=== PATIENT | female | born 1965 | race Caucasian/White ===

== ENCOUNTER 2017-10-24 14:22 | Emergency (ER) | payer OTHER ==
[~2017-10-24] VITALS: Ht 160 cm; Wt 80.0 kg
[~2017-10-24 14:22] MED LIST: OXYC1TAB3 PO
[2017-10-24 14:31] VITALS: TEMP 36.9; Ht 160 cm; Wt 80.0 kg
[2017-10-24] MEDS ORDERED: IBUPROFEN 600 MG TAB PO STA (14:43)
[2017-10-24] MEDS ORDERED: ACETAMINOPHEN 500 MG TAB PO STA (14:43)
[2017-10-24] MEDS ORDERED: ACET-1311 PO (14:54)
[2017-10-24] MEDS ORDERED: DIPH1TAB87 PO (14:54)
--- NOTE | 2017-10-24 15:21 | DIAGNOSTIC IMAGING REPORT ---
L WRIST MIN 3 VIEWS ROUTINE CLINICAL HISTORY: Fall. Left arm pain trauma. Pain. COMPARISON: None. DISCUSSION: The bones and joint spaces appear intact. There is no evidence of fracture, dislocation or bony disease. Small old avulsion base first metacarpal. Mild degenerative change first carpometacarpal joint. IMPRESSION: No acute bony abnormality. The above report was generated using voice recognition software. It may contain grammatical, syntax or spelling errors. Electronically signed by: Luis Platt M.D. 10/24/2017 3:20 PM Dictated Date/Time: 10/24/2017 3:19 PM
--- NOTE | 2017-10-24 15:22 | DIAGNOSTIC IMAGING REPORT ---
L ELBOW MIN 3 VIEWS ROUTINE CLINICAL HISTORY: Fall. Left arm pain trauma. Pain. COMPARISON: None. DISCUSSION: The bones and joint spaces appear intact. There is no evidence of fracture, dislocation or bony disease. There is no evidence for soft tissue swelling. IMPRESSION: Negative study. The above report was generated using voice recognition software. It may contain grammatical, syntax or spelling errors. Electronically signed by: Luis Platt M.D. 10/24/2017 3:21 PM Dictated Date/Time: 10/24/2017 3:20 PM
--- NOTE | 2017-10-24 15:24 | DIAGNOSTIC IMAGING REPORT ---
L-SPINE MIN 4 VIEWS ROUTINE HISTORY: Trauma. Pain. Fall. Low back injury/pain COMPARISON: None. FINDINGS: Mild scoliosis. Vertebral body stature is unremarkable. Mild degenerative disc change throughout. No evidence for an acute compression deformity. No evidence for subluxation. IMPRESSION: Mild degenerative change. Mild scoliosis. No acute process. The above report was generated using voice recognition software. It may contain grammatical, syntax or spelling errors. Electronically signed by: Luis Platt M.D. 10/24/2017 3:22 PM Dictated Date/Time: 10/24/2017 3:21 PM
[2017-10-24 15:59] VITALS: BP 140/86; PULSE 90; O2SAT 97
--- NOTE | 2017-10-24 16:51 | EMERGENCY ROOM VISIT NOTE ---
History First contact with patient: 14:33 Chief Complaint: WRIST PAIN Stated Complaint: INJURED LEFT WRIST WHILE WORKING- [employer] History of Present Illness The patient is a 52 year old female who presents to the Emergency Room with complaints of fall that occurred at work about 2-1/2 hours ago. 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 The patient fell backwards, primarily landing on her left arm and low back. The patient was able to collect herself, and stand after the episode. She does not report blood or bleeding. She is not on blood thinners. The patient has not taken anything [id number] for her discomfort which she currently rates a 5/10. She primarily has discomfort in the left wrist. There is a past history of left shoulder surgery, however this does not seem to be bothering her. She does have some mild neck pain but no other significant injuries. Review of Systems More than 10 systems were reviewed and otherwise negative with the exception of history of present illness. Past Medical/Surgical History Left shoulder surgery Family History No pertinent family history Current/Historical Medications Scheduled PRN Acetaminophen (Tylenol), 650 MG PO UD PRN for Pain Diphenhydramine Hcl (Benadryl Allergy), 25 MG PO UD PRN for ALLERGIES Physical Exam Vital Signs Date Time Temp Pulse Resp B/P (MAP) Pulse Ox O2 Delivery O2 Flow Rate FiO2 10/24/17 15:59 90 18 140/86 97 Room Air 10/24/17 14:31 36.9 102 18 168/98 99 Physical Exam VITALS: Vitals are noted on the nurse's note and reviewed by myself. Vital signs stable. GENERAL: Well-developed, well-nourished, white female, who is in no acute distress and resting comfortably. Patient is cooperative with the examination. HEAD: Normocephalic atraumatic. EARS: External ear normal. External auditory canals clear, tympanic membranes pearly luong without erythema or effusion bilaterally. EYES: Pupils equal round and reactive to light and accommodation. Conjunctivae without injection, sclerae without icterus. Extraocular movements intact. NOSE: Patent, turbinates without inflammation or discharge. MOUTH: Mucous membranes moist. Tonsils are not enlarged. Pharynx without erythema, blood, or exudate. Uvula midline. Airway patent. NECK: Supple without nuchal rigidity. No lymphadenopathy. No thyromegaly. Cervical spine is nontender. HEART: Regular rate and rhythm without murmurs gallops or rubs. LUNGS: Clear to auscultation bilaterally without wheezes, rales or rhonchi. No retractions or accessory muscle use. ABDOMEN: Positive normal bowel sounds x 4. Soft, nontender, without masses or organomegaly. No guarding or rebound tenderness. MUSCULOSKELETAL: Tenderness noted along the left wrist. No snuffbox tenderness. Neurovascular status is intact in the distal fingers of the left hand. There is difficulty with supination and pronation secondary to discomfort. No distinct tenderness of the elbow, however there is some tenderness through the radial head distribution. No significant tenderness of the left shoulder or hip. There is lower lumbar tenderness on palpation without step-off or significant spasm. Negative straight leg raise. No saddle paresthesias. NEURO: Patient was alert and oriented to person place and time. CN II through XII grossly intact. No focal neurological deficits. Deep tendon reflexes 2+ throughout. Medical Decision & Procedures ER Provider Diagnostic Interpretation: L ELBOW MIN 3 VIEWS ROUTINE CLINICAL HISTORY: Fall. Left arm pain trauma. Pain. COMPARISON: None. DISCUSSION: The bones and joint spaces appear intact. There is no evidence of fracture, dislocation or bony disease. There is no evidence for soft tissue swelling. IMPRESSION: Negative study. L-SPINE MIN 4 VIEWS ROUTINE HISTORY: Trauma. Pain. Fall. Low back injury/pain COMPARISON: None. FINDINGS: Mild scoliosis. Vertebral body stature is unremarkable. Mild degenerative disc change throughout. No evidence for an acute compression deformity. No evidence for subluxation. IMPRESSION: Mild degenerative change. Mild scoliosis. No acute process. L WRIST MIN 3 VIEWS ROUTINE CLINICAL HISTORY: Fall. Left arm pain trauma. Pain. COMPARISON: None. DISCUSSION: The bones and joint spaces appear intact. There is no evidence of fracture, dislocation or bony disease. Small old avulsion base first metacarpal. Mild degenerative change first carpometacarpal joint. IMPRESSION: No acute bony abnormality. Medications Administered Medications (Trade) Dose Ordered Sig/Scott Route Start Time Stop Time Status Last Admin Dose Admin Acetaminophen (Tylenol Tab) 1,000 mg NOW STAT PO 10/24/17 14:43 10/24/17 14:46 DC 10/24/17 14:55 1,000 MG Ibuprofen (Motrin Tab) 600 mg NOW STAT PO 10/24/17 14:43 10/24/17 14:46 DC 10/24/17 14:55 600 MG ED Course Physical exam and history were performed. Nursing notes, EMR, and Medication List were personally reviewed. Patient appears to have fallen and suffered injuries to her back and wrist. She has discomfort with supination and pronation. The patient was given ibuprofen and Tylenol here in the department. X-rays of the back, elbow, and wrist were performed. X-rays are as above and were reviewed by myself and radiology as showing no acute fractures or dislocations. Overall I suspect the patient's discomfort is related to the contusion, and may be a sprain/strain mechanism. The patient will be given a wrist lacer here from the department. The episode occurred while she was at work, and she will need to follow with Workmen's Compensation for further care and evaluation. She evidently has seen Dr. Rubalcava in the past, and may be able to see them through Workmen's Compensation. I will give her a note for several days off work as well as information for conservative care. She was otherwise invited back to the ER with any new, worsening, or concerning symptoms. The chart was completed utilizing [employer] Speech Voice Recognition Software. Grammatical errors, random word insertions, pronoun errors, and incomplete sentences are an occasional consequence of this system due to software limitations, ambient noise, and hardware issues. Any formal questions or concerns about the content, text, or information contained within the body of this dictation should be directly addressed to the provider for clarification. . Medical Decision Differential diagnosis includes, but is not limited to: Sprain, strain, fracture , dislocation, subluxation, contusion, and others Impression Primary Impression: Fall Additional Impressions: Injury of low back Injury of left wrist Departure Information Dispostion Home / Self-Care Condition GOOD Referrals Peter Rubalcava D.O. Forms HOME CARE DOCUMENTATION FORM, Work Instructions, Additional Instructions: Patient was seen and evaluated today in the emergency department fo medical care. Return to work on 10/27/2017. Please excuse. IMPORTANT VISIT INFORMATION Patient Instructions [facility], ED RICE Additional Instructions You were seen and evaluated today on an emergency basis only. This is not a substitute for, or an effort to provide, complete comprehensive medical care. It is not possible to recognize and treat all injuries or illnesses in a single emergency department visit. For this reason it is recommended that you followup with your Workmen's Compensation provider this week for recheck of your condition. For baseline pain relief you may alternate ibuprofen and acetaminophen every 4 hours for pain control. Take 600 mg ibuprofen (Advil) and then 4 hours later take 1000 mg acetaminophen (Tylenol). Do not take more than 3000 mg acetaminophen in a single day. Wear your wrist lacer until cleared by workman's compensation You are welcome to return to the emergency department anytime with new, worsening, or concerning symptoms. Work Instructions Additional Work Instructions: Patient was seen and evaluated today in the emergency department for medical care. Return to work on 10/27/2017. Please excuse. Problem Qualifiers
== END 2017-10-24 16:00 | disposition home or self-care (01) ==
LOC: C.EDB 14:23 → C.EDD 16:00
DX: S39.92XA Unspecified injury of lower back, initial encounter (principal); S69.92XA Unspecified injury of left wrist, hand and finger(s), initial encounter; W19.XXXA Unspecified fall, initial encounter; Y99.0 Civilian activity done for income or pay

== ENCOUNTER 2022-12-12 18:33 | Inpatient (IN) ==
[2022-12-12] MEDS ORDERED: SODIUM CHLORIDE 0.9% 1000ML 1,000 ML IV ONE (19:01)
[2022-12-12] MEDS ORDERED: ONDANSETRON INJ 2 MG/ML 2 ML VIAL IV STA (19:01)
[2022-12-12] MEDS ORDERED: KETOROLAC TROMETHAMINE 15 MG/ML VIAL IV STA (19:01)
[2022-12-12 19:32] LABS: Appearance Urine Cloudy (Clear); Bacteria Urine Automated Negative (Negative); Bilirubin Urine Negative (Negative); Blood Urine Negative (Negative); Color Urine Dark Yellow; Epithelial Cell Urine Auto >30 /lpf (0-5); Glucose Urine UA Trace (Negative); Ketones Urine Trace (Negative); Leukocyte Esterase Urine Trace (Negative); Nitrite Urine Negative (Negative); Protein Urine 1+ (Negative); Specific Gravity Urine 1.028 (1.000-1.030); Urobilinogen Urine Negative (Negative)
[2022-12-12 19:35] LABS: Hematocrit (blood only) 44.1 % (37.0-47.0); Hemoglobin 14.8 g/dl (12.0-16.0); Mean Corpuscular Hemoglobin 30.1 pg (25.0-34.0); Mean Corpuscular Hgb Conc 33.6 g/dL (32.0-36.0); Mean Corpuscular Volume 89.6 fL (80.0-100.0); Mean Platelet Volume 12.3 fL (9.4-12.4); Platelet Count 188 K/uL (130-400); RDW Standard Deviation 42.4 fL (36.4-46.3); Red Blood Count 4.92 M/uL (4.20-5.40); White Blood Count 20.27 K/ul (4.8-10.8)
[2022-12-12 19:56] LABS: Alanine Aminotransferase 22 U/L (7-52); Albumin Level 4.9 gm/dl (3.4-5.0); Alkaline Phosphatase 67 U/L (34-104); Anion Gap 11 (3-11); BUN Creatinine Ratio 18.1 (10-20); Bilirubin,Total 1.4 mg/dl (0.2-1.0); Blood Urea Nitrogen 21 mg/dl (6-23); Calcium 9.3 mg/dl (8.6-10.3); Carbon Dioxide 21 mmol/L (21-32); Chloride 104 mmol/L (98-107); Est GFR (Non-African American) 52.6 ml/min; Glucose 227 mg/dl (70-99(Fasting)); Lipase 13 U/L (11-82); Sodium 136 mmol/L (136-145); Total Protein 7.6 gm/dl (6.0-8.3)
[2022-12-12 20:02] LABS: Basophils # (auto) 0.07 K/uL (0-0.2); Basophils % (auto) 0.3 %; Eosinophils # (auto) 0.04 K/uL (0-0.50); Eosinophils % (auto) 0.2 %; Immature Granulocytes # (auto) 0.09 K/uL (0.01-0.20); Immature Granulocytes % (auto) 0.4 %; Lymphocytes # (auto) 0.89 K/uL (1.2-3.4); Lymphocytes % (auto) 4.4 %; Monocytes # (auto) 0.72 K/uL (0.11-0.59); Monocytes % (auto) 3.6 %; Neutrophils # (auto) 18.46 K/uL (1.40-6.50); Neutrophils % (auto) 91.1 %; RBC Morphology Unremarkable
[2022-12-12 20:03] LABS: Cast Urine Automated >30 /lpf (0-5)
--- NOTE | 2022-12-12 20:32 | CT Scan Report ---
ABDOMEN AND PELVIS CT WITHOUT CONTRAST CT DOSE: 994.31 mGy.cm HISTORY: dysuria hematuria llq pain TECHNIQUE: Multiaxial CT images of the abdomen and pelvis were performed without contrast. A dose lo wering technique was utilized adhering to the principles of ALARA. COMPARISON STUDY: None. FINDINGS: A few small bibasilar linear densities consistent with subsegmental atelectasis. No pneumop eritoneum. No acute fractures identified. Cholecystectomy. Hepatic steatosis. The unenhanced spleen, adrenal glands, and pancreas unremarkable. There is a 2 mm nonobstructing stone within the lower pole of the left kidney. No right renal calculi. No ureteral calculi. No hydronephrosis. No retroperitone al lymphadenopathy. Normal caliber abdominal aorta. No pelvic lymphadenopathy or pelvic free fluid. P rior hysterectomy. Mild bladder wall thickening. Suboptimal evaluation for bowel pathology due to the lack of intravenous and oral contrast. However, there is no definite bowel wall thickening or obstru ction. Multiple fluid-filled loops of large and small bowel are seen throughout the abdomen. This fav ors a diarrheal illness/gastroenteritis. Normal appendix. Small gas bubbles along the periphery of th e cecum are likely intraluminal. No bowel wall thickening or inflammatory change to suggest pneumatos is at this location. IMPRESSION: 1. Mild bladder wall thickening. This may represent a cystitis. Recommend correlation with urinalysis . 2. Fluid-filled nondilated loops of large and small bowel seen throughout the abdomen. This favors a diarrheal illness/gastroenteritis. 3. No bowel wall thickening or obstruction. 4. Normal appendix. 5. Cholecystectomy. 6. Hepatic steatosis. 7. Left-sided nephrolithiasis. No ureteral stones. No hydronephrosis. ACT 112: Negative or not required by law. Electronically signed by: Zackary Akbar M.D. 12/12/2022 8:29 PM
[2022-12-12 20:57] LABS: Bilirubin Direct 0.2 mg/dl (0-0.2); Potassium 4.1 mmol/L (3.5-5.1)
[2022-12-12] MEDS ORDERED: SODIUM CHLORIDE 0.9% 1000ML 2,000 ML IV ONE (21:00)
[2022-12-12 22:34] LABS: Adenovirus F 40/41 PCR Not Detected (NotDetected); Astrovirus PCR Not Detected (NotDetected); Campylobacter PCR Not Detected (NotDetected); Cryptosporidium PCR Not Detected (NotDetected); Cyclospora cayetanensis PCR Not Detected (NotDetected); Entamoeba histolytica PCR Not Detected (NotDetected); Enteroaggregative E.coli(EAEC) Not Detected (NotDetected); Enteropathogenic E.coli (EPEC) Not Detected (NotDetected); Enterotoxigenic E.coli (ETEC) Not Detected (NotDetected); Giardia lamblia PCR Not Detected (NotDetected); Norovirus GI/GII PCR Not Detected (NotDetected); Plesiomonas shigelloides PCR Not Detected (NotDetected); Rotavirus A PCR Not Detected (NotDetected); Salmonella PCR Not Detected (NotDetected); Sapovirus PCR Not Detected (NotDetected); Shiga-like Toxin E.coli (STEC) Not Detected (NotDetected); Shigella/Enteroinvasive E.coli Not Detected (NotDetected); Vibrio cholerae PCR Not Detected (NotDetected); Vibrio species PCR Not Detected (NotDetected); Yersinia enterocolitica PCR Not Detected (NotDetected)
[2022-12-12] MEDS ORDERED: cefTRIAXone SODIUM 1,000 MG in DEXTROSE 5% AD-VAN 50 ML IV STA (22:37)
[2022-12-12] MEDS ORDERED: metroNIDAZOLE 500 MG/100 ML BAG IV STA (22:37)
--- NOTE | 2022-12-12 22:44 | Emergency Department Note ---
History of Present Illness General Chief complaint: Illness Stated complaint: VOMITING,DIARREAH STOMACH PAINS,HEADACHE Time Seen by Provider: 12/12/22 18:56 History of Present Illness Provider Complaint: + nausea, + vomiting, + diarrhea and + abdominal pain Onset (ago): week(s) 2 Description of Vomiting: no bilious, no blood-streaked, no bloody or no coffee grounds Description of Diarrhea: no tarry, no blood-streaked or no bloody (bright red) Associated Abdominal Pain: Yes Location of pain: + LLQ Severity: moderate Maximum Pain Intensity: 7 Current Pain Intensity: 7 Quality: + stabbing and + sharp Pain Consistency: + constant Relieved By: + none Exacerbated By: + none Context: + recent antibiotic use (Patient states her PCP initially thought she had a UTI so prescribed her Keflex however she only took 1 pill because it started making her vomit more); no foreign travel, no possible food poisoning, no sick contacts, no history of abdominal surgery, no alcohol abuse, no trauma, no anticoagulant use, no NSAID use, no self induced, no smoking or no marijuana use Associated symptoms: + myalgias, + fever/chills (Chills no fevers), + malaise and + weakness; no chest pain, no rash, no dysuria or no shortness of breath HPI Narrative: Patient reports 7 pound weight loss over the last 2 weeks Home Medications Medication Instructions Recorded Confirmed Type acetaminophen [Tylenol] PO 02/10/22 02/10/22 History cetirizine 10 mg capsule (Zyrtec) 10 mg PO DAILY PRN 02/10/22 02/10/22 History lisinopril 2.5 mg tablet 2.5 mg PO DAILY 02/10/22 02/10/22 History lorazepam 0.5 mg tablet 0.5 mg PO DAILY PRN 02/10/22 02/10/22 History meloxicam 15 mg tablet 15 mg PO DAILY 02/10/22 02/10/22 History metformin 500 mg tablet 500 mg PO BID 02/10/22 02/10/22 History Allergies Allergy/AdvReac Type Severity Reaction Status Date / Time No Known Drug Allergies Allergy Verified 02/10/22 09:13 Past Med/Surg History Medical History Dizziness Neck pain Radiculopathy Right tennis elbow Surgical History History of cholecystectomy History of hysterectomy Hx of arthroscopy of shoulder left Family History Other Heart disease Hypertension No family history of adverse response to anesthesia No family history of bleeding disorder Social History Smoking Status: Never smoker Hx Alcohol Use: No Hx Substance Use: No Preferred Language: Venezuelan Feels Safe at Home: Yes Physical Exam Vital Signs: Vital Signs - 24 hr 12/12/22 18:42 12/12/22 19:46 12/12/22 20:24 Temperature 36.5 C Temperature Source Temporal Artery Sc an Pulse Rate 127 H 100 H Pulse Rate [Apical ] 90 Pulse Rhythm Pulse Rhythm [Apic al] Regular Pulse Strength [Ap ical] Normal Respiratory Rate 18 14 Respiratory Effort / Characteristics Non-Labored Sponta neous Respiratory Depth Normal Respiratory Patter n Regular Blood Pressure 114/74 Blood Pressure [Ri ght Arm] 116/52 L Blood Pressure Rosemarie n 87 Blood Pressure Rosemarie n [Right Arm] 73 Blood Pressure Pos ition Sitting Blood Pressure Pos ition [Right Arm] Semi-fowlers Pulse Oximetry 97 95 Oxygen Delivery Me thod Room Air Room Air Sepsis Recent Feve r Within 48 Hours No Sepsis New/Unexpla ined Change in Men ryan Status N/A Sepsis Action Take n by Nursing No Action Required 12/12/22 20:45 Temperature Temperature Source Pulse Rate 90 Pulse Rate [Apical ] Pulse Rhythm Regular Pulse Rhythm [Apic al] Pulse Strength [Ap ical] Respiratory Rate 15 Respiratory Effort / Characteristics Respiratory Depth Respiratory Patter n Blood Pressure Blood Pressure [Ri ght Arm] Blood Pressure Rosemarie n Blood Pressure Rosemarie n [Right Arm] Blood Pressure Pos ition Blood Pressure Pos ition [Right Arm] Pulse Oximetry 95 Oxygen Delivery Me thod Room Air Sepsis Recent Feve r Within 48 Hours Sepsis New/Unexpla ined Change in Men ryan Status Sepsis Action Take n by Nursing Physical Exam: Physical Exam HENT: Exam performed. -Head: Normocephalic and atraumatic. -Right Ear: External ear normal. No mastoid erythema -Left Ear: External ear normal. No mastoid erythema -Mouth/Throat: The oropharynx is clear and moist. No trismus in the jaw. No dental abscesses or uvula swelling. No oropharyngeal exudate or tonsillar abscesses. EYES: Conjunctivae and EOM are normal. Pupils are equal, round, and reactive to light. Right eye exhibits no discharge. Left eye exhibits no discharge. No scleral icterus. NECK: Normal range of motion. Neck supple. No JVD present. No spinous process tenderness present.No tracheal deviation and normal range of motion present. CV: Normal rate, regular rhythm, normal heart sounds and intact distal pulses. There is no peripheral edema. Palpable radial pulses bue. PULM/CHEST: Effort normal and breath sounds normal. No respiratory distress. No stridor. She has no wheezes. She has no rales. -Chest Wall: She exhibits no tenderness. ABD: The abdomen is soft. There is tenderness to palpation of the left lower quadrant. There is no rebound, no guarding. NEURO: She is alert and oriented to person, place, and time. She has normal strength. No cranial nerve deficit or sensory deficit. GCS eye subscore is 4. GCS verbal subscore is 5. GCS motor subscore is 6. Cerebellar tests wnl. SKIN: Skin is warm and dry. She is not diaphoretic. PSYCH: She has a normal mood and affect. Behavior is normal. Judgment and thought content normal. Course Course 185: The patient was evaluated in room C1. A complete history and physical exam was performed Cardiac monitoring: An order was placed for continuous cardiac monitoring. The monitor shows a rate of 90 with sinus rhythm interpreted by az 2249: Vital signs stable. On reassessment the patient is resting. Her heart rate is improved with IV fluids. No meningeal signs or focal neurological deficits. Labs show leukocytosis of 20.27 initial lactic acid 3.6. Total bilirubin 1.4. Urinalysis shows no signs of bacteria. BioFire stool negative. COVID-negative. CT of the abdomen pelvis shows mild bladder wall thickening and fluid-filled nondilated loops of the small and large bowels with a normal appendix. Given there is no source of the patient's infection patient be treated empirically with antibiotics and admitted to [facility] team Dr. Brunner notified. 2316: Chest x-ray negative. C. difficile pending. Administered Medications Discontinued Medications Sodium Chloride (Nss 1000ml) 1,000 mls @ 999 mls/hr IV .Q1H1M ONE Stop: 12/12/22 20:01 Last Infusion: 12/12/22 20:32 Dose: 0 mls/hr Documented By: Admin: 12/12/22 19:26 Dose: 999 mls/hr Documented By: Sodium Chloride (Nss 1000ml) 2,000 mls @ 999 mls/hr IV .Q2H1M ONE Stop: 12/12/22 23:00 Last Admin: 12/12/22 21:15 Dose: 999 mls/hr Documented By: Ketorolac Tromethamine (Ketorolac Tromethamine 15 Mg/Ml Vial) 15 mg IV NOW STA Stop: 12/12/22 19:02 Last Admin: 12/12/22 19:26 Dose: 15 mg Documented By: Ondansetron HCl (Ondansetron Inj 2 Mg/Ml 2 Ml Vial) 4 mg IV NOW STA Stop: 12/12/22 19:02 Last Admin: 12/12/22 19:26 Dose: 4 mg Documented By: Medical Decision Making Laboratory Data Attestation: I reviewed the patient's lab results. 12/12/22 19:08 12/12/22 20:04 Lab Results 12/12/22 12/12/22 12/12/22 Range/Units 19:08 19:08 19:08 WBC 20.27 H (4.8-10.8) K/ul RBC 4.92 (4.20-5.40) M/uL Hgb 14.8 (12.0-16.0) g/dl Hct 44.1 (37.0-47.0) % MCV 89.6 (80.0-100.0) fL MCH 30.1 (25.0-34.0) pg MCHC 33.6 (32.0-36.0) g/dL RDW Std Deviation 42.4 (36.4-46.3) fL RDW Coeff of Kim 13.0 (11.5-14.5) % Plt Count 188 (130-400) K/uL MPV 12.3 (9.4-12.4) fL Immature Gran % (Auto) 0.4 % Neut % (Auto) 91.1 % Lymph % (Auto) 4.4 % [place] % (Auto) 3.6 % Eos % (Auto) 0.2 % Baso % (Auto) 0.3 % Neut # (Auto) 18.46 H (1.40-6.50) K/uL Lymph # (Auto) 0.89 L (1.2-3.4) K/uL [place] # (Auto) 0.72 H (0.11-0.59) K/uL Eos # (Auto) 0.04 (0-0.50) K/uL Baso # (Auto) 0.07 (0-0.2) K/uL Immature Gran # (Auto) 0.09 (0.01-0.20) K/uL RBC Morphology Unremarkable Sodium 136 (136-145) mmol/L Potassium TNP Chloride 104 (98-107) mmol/L Carbon Dioxide 21 (21-32) mmol/L Anion Gap 11 (3-11) BUN 21 (6-23) mg/dl Creatinine 1.16 (0.6-1.2) mg/dl Est Cr Clr Drug Dosing Not Reportable Est GFR ( Amer) 61.0 ml/min Est GFR (Non-Af Amer) 52.6 ml/min BUN/Creatinine Ratio 18.1 (10-20) Glucose 227 H (70-99(Fasting)) mg/dl Lactate (0.4-2.0) mmol/L Calcium 9.3 (8.6-10.3) mg/dl Total Bilirubin 1.4 H (0.2-1.0) mg/dl Direct Bilirubin TNP AST TNP ALT 22 (7-52) U/L Alkaline Phosphatase 67 (34-104) U/L Total Protein 7.6 (6.0-8.3) gm/dl Albumin 4.9 (3.4-5.0) gm/dl Lipase 13 (11-82) U/L Urine Color Dark Yellow Urine Appearance Cloudy A (Clear) Urine pH 5.0 (4.5-7.5) Ur Specific [place] 1.028 (1.000-1.030) Urine Protein 1+ H (Negative) Urine Glucose (UA) Trace H (Negative) Urine Ketones Trace H (Negative) Urine Blood Negative (Negative) Urine Nitrite Negative (Negative) Urine Bilirubin Negative (Negative) Urine Urobilinogen Negative (Negative) Ur Leukocyte Esterase Trace H (Negative) Urine WBC (Auto) 5-10 H (0-5) /hpf Urine RBC (Auto) 10-30 H (0-4) /hpf U Hyaline Cast (Auto) >30 H (0-5) /lpf U Epithel Cells (Auto) >30 H (0-5) /lpf Urine Bacteria (Auto) Negative (Negative) Ur Renal Epithelial Cell Not Reportable Granular Casts 5-10 H (0) /lpf Stl C. cayetanensis PCR (NotDetected) Stool Rotavirus A PCR (NotDetected) Stl Adenov F 40/41 PCR (NotDetected) Stool Astrovirus (PCR) (NotDetected) Stool Campylobacter PCR (NotDetected) Stool Cryptosporidium PCR (NotDetected) Stl E.coli Shiga Tox PCR (NotDetected) Stl Enterotoxigenic E PCR (NotDetected) Stool EPEC (PCR) (NotDetected) Stool EAEC (PCR) (NotDetected) Stl E. histolytica PCR (NotDetected) Stool Giardia Lamblia PCR (NotDetected) Stool Salmonella PCR (NotDetected) Stool Sapovirus (PCR) (NotDetected) Stl P. shigelloides PCR (NotDetected) Stl Shigella/EIEC PCR (NotDetected) St Y.enterocolitica PCR (NotDetected) Stool Vibrio (PCR) (NotDetected) Stl Vibrio cholerae PCR (NotDetected) Stl Norovirus GI/GII PCR (NotDetected) SARS-CoV-2, RNA, NAAT (NEGATIVE) 12/12/22 12/12/22 12/12/22 Range/Units 19:30 20:04 20:04 WBC (4.8-10.8) K/ul RBC (4.20-5.40) M/uL Hgb (12.0-16.0) g/dl Hct (37.0-47.0) % MCV (80.0-100.0) fL MCH (25.0-34.0) pg MCHC (32.0-36.0) g/dL RDW Std Deviation (36.4-46.3) fL RDW Coeff of Kim (11.5-14.5) % Plt Count (130-400) K/uL MPV (9.4-12.4) fL Immature Gran % (Auto) % Neut % (Auto) % Lymph % (Auto) % [place] % (Auto) % Eos % (Auto) % Baso % (Auto) % Neut # (Auto) (1.40-6.50) K/uL Lymph # (Auto) (1.2-3.4) K/uL [place] # (Auto) (0.11-0.59) K/uL Eos # (Auto) (0-0.50) K/uL Baso # (Auto) (0-0.2) K/uL Immature Gran # (Auto) (0.01-0.20) K/uL RBC Morphology Sodium (136-145) mmol/L Potassium 4.1 Chloride (98-107) mmol/L Carbon Dioxide (21-32) mmol/L Anion Gap (3-11) BUN (6-23) mg/dl Creatinine (0.6-1.2) mg/dl Est Cr Clr Drug Dosing Est GFR ( Amer) ml/min Est GFR (Non-Af Amer) ml/min BUN/Creatinine Ratio (10-20) Glucose (70-99(Fasting)) mg/dl Lactate 3.6 H* (0.4-2.0) mmol/L Calcium (8.6-10.3) mg/dl Total Bilirubin (0.2-1.0) mg/dl Direct Bilirubin 0.2 AST 22 ALT (7-52) U/L Alkaline Phosphatase (34-104) U/L Total Protein (6.0-8.3) gm/dl Albumin (3.4-5.0) gm/dl Lipase (11-82) U/L Urine Color Urine Appearance (Clear) Urine pH (4.5-7.5) Ur Specific [place] (1.000-1.030) Urine Protein (Negative) Urine Glucose (UA) (Negative) Urine Ketones (Negative) Urine Blood (Negative) Urine Nitrite (Negative) Urine Bilirubin (Negative) Urine Urobilinogen (Negative) Ur Leukocyte Esterase (Negative) Urine WBC (Auto) (0-5) /hpf Urine RBC (Auto) (0-4) /hpf U Hyaline Cast (Auto) (0-5) /lpf U Epithel Cells (Auto) (0-5) /lpf Urine Bacteria (Auto) (Negative) Ur Renal Epithelial Cell Granular Casts (0) /lpf Stl C. cayetanensis PCR (NotDetected) Stool Rotavirus A PCR (NotDetected) Stl Adenov F PCR (NotDetected) Stool Astrovirus (PCR) (NotDetected) Stool Campylobacter PCR (NotDetected) Stool Cryptosporidium PCR (NotDetected) Stl E.coli Shiga Tox PCR (NotDetected) Stl Enterotoxigenic E PCR (NotDetected) Stool EPEC (PCR) (NotDetected) Stool EAEC (PCR) (NotDetected) Stl E. histolytica PCR (NotDetected) Stool Giardia Lamblia PCR (NotDetected) Stool Salmonella PCR (NotDetected) Stool Sapovirus (PCR) (NotDetected) Stl P. shigelloides PCR (NotDetected) Stl Shigella/EIEC PCR (NotDetected) St Y.enterocolitica PCR (NotDetected) Stool Vibrio (PCR) (NotDetected) Stl Vibrio cholerae PCR (NotDetected) Stl Norovirus GI/GII PCR (NotDetected) SARS-CoV-2, RNA, NAAT NEGATIVE (NEGATIVE) 12/12/22 Range/Units 21:08 WBC (4.8-10.8) K/ul RBC (4.20-5.40) M/uL Hgb (12.0-16.0) g/dl Hct (37.0-47.0) % MCV (80.0-100.0) fL MCH (25.0-34.0) pg MCHC (32.0-36.0) g/dL RDW Std Deviation (36.4-46.3) fL RDW Coeff of Kim (11.5-14.5) % Plt Count (130-400) K/uL MPV (9.4-12.4) fL Immature Gran % (Auto) % Neut % (Auto) % Lymph % (Auto) % [place] % (Auto) % Eos % (Auto) % Baso % (Auto) % Neut # (Auto) (1.40-6.50) K/uL Lymph # (Auto) (1.2-3.4) K/uL [place] # (Auto) (0.11-0.59) K/uL Eos # (Auto) (0-0.50) K/uL Baso # (Auto) (0-0.2) K/uL Immature Gran # (Auto) (0.01-0.20) K/uL RBC Morphology Sodium (136-145) mmol/L Potassium Chloride (98-107) mmol/L Carbon Dioxide (21-32) mmol/L Anion Gap (3-11) BUN (6-23) mg/dl Creatinine (0.6-1.2) mg/dl Est Cr Clr Drug Dosing Est GFR ( Amer) ml/min Est GFR (Non-Af Amer) ml/min BUN/Creatinine Ratio (10-20) Glucose (70-99(Fasting)) mg/dl Lactate (0.4-2.0) mmol/L Calcium (8.6-10.3) mg/dl Total Bilirubin (0.2-1.0) mg/dl Direct Bilirubin AST ALT (7-52) U/L Alkaline Phosphatase (34-104) U/L Total Protein (6.0-8.3) gm/dl Albumin (3.4-5.0) gm/dl Lipase (11-82) U/L Urine Color Urine Appearance (Clear) Urine pH (4.5-7.5) Ur Specific [place] (1.000-1.030) Urine Protein (Negative) Urine Glucose (UA) (Negative) Urine Ketones (Negative) Urine Blood (Negative) Urine Nitrite (Negative) Urine Bilirubin (Negative) Urine Urobilinogen (Negative) Ur Leukocyte Esterase (Negative) Urine WBC (Auto) (0-5) /hpf Urine RBC (Auto) (0-4) /hpf U Hyaline Cast (Auto) (0-5) /lpf U Epithel Cells (Auto) (0-5) /lpf Urine Bacteria (Auto) (Negative) Ur Renal Epithelial Cell Granular Casts (0) /lpf Stl C. cayetanensis PCR Not Detected (NotDetected) Stool Rotavirus A PCR Not Detected (NotDetected) Stl Adenov F 40/41 PCR Not Detected (NotDetected) Stool Astrovirus (PCR) Not Detected (NotDetected) Stool Campylobacter PCR Not Detected (NotDetected) Stool Cryptosporidium PCR Not Detected (NotDetected) Stl E.coli Shiga Tox PCR Not Detected (NotDetected) Stl Enterotoxigenic E PCR Not Detected (NotDetected) Stool EPEC (PCR) Not Detected (NotDetected) Stool EAEC (PCR) Not Detected (NotDetected) Stl E. histolytica PCR Not Detected (NotDetected) Stool Giardia Lamblia PCR Not Detected (NotDetected) Stool Salmonella PCR Not Detected (NotDetected) Stool Sapovirus (PCR) Not Detected (NotDetected) Stl P. shigelloides PCR Not Detected (NotDetected) Stl Shigella/EIEC PCR Not Detected (NotDetected) St Y.enterocolitica PCR Not Detected (NotDetected) Stool Vibrio (PCR) Not Detected (NotDetected) Stl Vibrio cholerae PCR Not Detected (NotDetected) Stl Norovirus GI/GII PCR Not Detected (NotDetected) SARS-CoV-2, RNA, NAAT (NEGATIVE) Imaging Data Attestation: I personally reviewed and interpreted this imaging study as follows: My Impression: Chest x-ray negative. Airway clear. No pneumothorax. No consolidation. No cardiomegaly or cephalization.. No free air under the diaphragm. No fractures of the skeletal structures. Radiologist's Impression: Abdomen/Pelvis CT 12/12/22 19:[address] WITHOUT CONTRAST CT DOSE: 994.31 mGy.cm HISTORY: dysuria hematuria llq pain TECHNIQUE: Multiaxial CT images of the abdomen and pelvis were performed without contrast. A dose lowering technique was utilized adhering to the principles of ALARA. COMPARISON STUDY: None. FINDINGS: A few small bibasilar linear densities consistent with subsegmental atelectasis. No pneumoperitoneum. No acute fractures identified. Cholecystectomy. Hepatic steatosis. The unenhanced spleen, adrenal glands, and pancreas unremarkable. There is a 2 mm nonobstructing stone within the lower pole of the left kidney. No right renal calculi. No ureteral calculi. No hydronephrosis. No retroperitoneal lymphadenopathy. Normal caliber abdominal aorta. No pelvic lymphadenopathy or pelvic free fluid. Prior hysterectomy. Mild bladder wall thickening. Suboptimal evaluation for bowel pathology due to the lack of intravenous and oral contrast. However, there is no definite bowel wall thickening or obstruction. Multiple fluid-filled loops of large and small bowel are seen throughout the abdomen. This favors a diarrheal illness/gastroenteritis. Normal appendix. Small gas bubbles along the periphery of the cecum are likely intraluminal. No bowel wall thickening or inflammatory change to suggest pneumatosis at this location. IMPRESSION: 1. Mild bladder wall thickening. This may represent a cystitis. Recommend correlation with urinalysis. 2. Fluid-filled nondilated loops of large and small bowel seen throughout the abdomen. This favors a diarrheal illness/gastroenteritis. 3. No bowel wall thickening or obstruction. 4. Normal appendix. 5. Cholecystectomy. 6. Hepatic steatosis. 7. Left-sided nephrolithiasis. No ureteral stones. No hydronephrosis. ACT 112: Negative or not required by law. Electronically signed by: Zackary Akbar M.D. 12/12/2022 8:29 PM [facility] Narrative 1856: The patient was evaluated in room C1. A complete history and physical exam was performed Cardiac monitoring: An order was placed for continuous cardiac monitoring. The monitor shows a rate of 90 with sinus rhythm interpreted by az [id number]: Vital signs stable. On reassessment the patient is resting. Her heart rate is improved with IV fluids. No meningeal signs or focal neurological deficits. Labs show leukocytosis of 20.27 initial lactic acid 3.6. Total bilirubin 1.4. Urinalysis shows no signs of bacteria. BioFire stool negative. COVID-negative. CT of the abdomen pelvis shows mild bladder wall thickening and fluid-filled nondilated loops of the small and large bowels with a normal appendix. Given there is no source of the patient's infection patient be treated empirically with antibiotics and admitted to the [facility] team Dr. Brunner notified. 2316: Chest x-ray negative. C. difficile pending. Impression & Plan Nausea & vomiting, Diarrhea, Sepsis Discharge Plan Visit Data Chief Complaint: Illness Stated Complaint: VOMITING,DIARREAH STOMACH PAINS,HEADACHE ED Provider: Romero Moreno Discharge Problem: Nausea & vomiting, Diarrhea, Sepsis Patient Disposition: Admitted As Inpatient Forms Stand Alone Forms: [facility] Prescriptions Prescriptions: No Action metformin 500 mg tablet 500 mg PO BID lisinopril 2.5 mg tablet 2.5 mg PO DAILY lorazepam 0.5 mg tablet 0.5 mg PO DAILY PRN acetaminophen [Tylenol] PO Zyrtec 10 mg capsule 10 mg PO DAILY PRN meloxicam 15 mg tablet 15 mg PO DAILY Referrals Referrals: Jeyson Quesada DO [Primary Care Provider] -
[2022-12-12] MEDS ORDERED: LACTATED RINGER'S 1,000 ML IV ONE (23:00)
[2022-12-12 23:23] LABS: Magnesium 1.6 mg/dl (1.7-2.4)
--- NOTE | 2022-12-12 23:31 | History & Physical Report ---
Date of Service December 12, 2022 Assessment & Plan (1) Severe sepsis: Plan: SIRS plus lactic acidosis Calcitonin noted to be elevated Possible sources : Complicated UTI (cystitis on CT) Diarrheal illness rule out C. difficile given recent antibiotic Rx HTN, stable BP DM2 on oral medications, suboptimal control as of outpatient hemoglobin A1c of 9 last November 2021 anxiety disorder, at baseline hyperferritinemia, [place] [facility] [place] cervical dysplasia status post surgery Medical telemetry CS, Zosyn Stool C. difficile IVF, follow lactic acid Basal bolus insulin, ISS BG goal 1 10-1 40, carb count coverage, update hem oglobin A1c DVT prophylaxis. Lovenox subcu Full code Text document was generated using [employer] voice recognition software. It may contain grammatical or spelling errors. Kindly contact undersigned for clarification of any documentation item in question. History of Present Illness Chief Complaint: Abdominal pain, nausea vomiting Primary Care Provider: Jeyson Quesada, History obtained from patient, family, and records. Medical history significant for HTN, DM2 on oral medications, anxiety disorder, hyperferritinemia, cervical dysplasia status post surgery as per records. 2 weeks ago, patient noted dysuria symptoms. Home Azo test positive. PCP prescribed Keflex for possible UTI. Subsequent achy abdominal pain, watery diarrhea and vomiting symptoms after 1 dose of Keflex. Patient consulted [facility] urgent care center. Patient instructed to stop Keflex. Repeat UA done negative for growth. Symptoms initially settled down but started getting worse again yesterday. No chest pain, no SOB, no cough, no fever, no chills. Ceftriaxone and Flagyl administered at the ER. Medical History as above Surgical History : Left shoulder surgery, cervical conization, BTL, cholecystectomy Family History : Heart disease, cirrhosis, RA Personal/Social history : Non-smoker, occasional Et[employer] intake, RN/geriatric case manager Allergies Allergy/AdvReac Type Severity Reaction Status Date / Time cephalexin [From Keflex] AdvReac vomiting & Verified 12/13/22 00:01 diarrhea Home Medications Medication Instructions Recorded Confirmed Type acetaminophen 500 mg tablet 1,000 mg PO Q6H PRN Pain 12/13/22 12/13/22 History (Tylenol Extra Strength) lisinopril 2.5 mg tablet 2.5 mg PO DAILY 12/13/22 12/13/22 History metformin 1,000 mg tablet 1,000 mg PO BID 12/13/22 12/13/22 History ondansetron HCl 4 mg tablet 8 mg PO Q8 PRN Nausea 12/13/22 12/13/22 History tizanidine 4 mg tablet 4 mg PO TID PRN .spasms 12/13/22 12/13/22 History zolpidem 5 mg tablet 2.5 mg PO HS PRN Sleep 12/13/22 12/13/22 History Past Med/Surg History Medical History Dizziness Neck pain Radiculopathy Right tennis elbow Surgical History History of cholecystectomy History of hysterectomy Hx of arthroscopy of shoulder left Family History Other Heart disease Hypertension No family history of adverse response to anesthesia No family history of bleeding disorder Social History Smoking Status: Never smoker Hx Alcohol Use: No Hx Substance Use: No Preferred Language: Sinhala Communication Ability: Effective Florist Manager Required: No Beliefs That Will Affect Care: None Current Living Situation: Family Other Information That Helps Us Care for You: No Feels Safe at Home: Yes Safety Concerns: Feels Safe At This Time Assistive Devices: None Review of Systems Review of Systems: As per HPI, all other systems reviewed and negative Physical Exam Physical Exam: GENERAL: Comfortable, pleasant, obese, no respiratory distress SKIN: Normal color, warm HEENT: [place] palpebral conjunctivae, no ptosis, dry buccal mucosa NECK : Supple, short neck, no tenderness CHEST : CTA, no tenderness HEART : RRR, no obvious murmurs ABDOMEN: Some distention, central abdominal tenderness EXTREMITIES : Minimal LE swelling, no LE tenderness, no other conspicuous deformities noted NEUROLOGIC : Coherent, no facial asymmetry, no other gross focality Results & Data Results & Data Vital Signs (Past 12 Hours) Vital Signs Temp Pulse Pulse Resp BP BP Pulse Ox 12/12/22 20:45 90 15 95 12/12/22 20:24 90 14 116/52 L 95 12/12/22 19:46 100 H 12/12/22 18:42 36.5 C 127 H 18 114/74 97 O2 Del Method 12/12/22 20:45 Room Air 12/12/22 20:24 Room Air 12/12/22 19:46 12/12/22 18:42 Room Air Laboratory Results Laboratory Results WBC 20.27 K/ul (4.8-10.8) H 12/12/22 19:08 RBC 4.92 M/uL (4.20-5.40) 12/12/22 19:08 Hgb 14.8 g/dl (12.0-16.0) 12/12/22 19:08 Hct 44.1 % (37.0-47.0) 12/12/22 19:08 MCV 89.6 fL (80.0-100.0) 12/12/22 19:08 MCH 30.1 pg (25.0-34.0) 12/12/22 19:08 MCHC 33.6 g/dL (32.0-36.0) 12/12/22 19:08 RDW Std Deviation 42.4 fL (36.4-46.3) 12/12/22 19:08 RDW Coeff of Kim 13.0 % (11.5-14.5) 12/12/22 19:08 Plt Count 188 K/uL (130-400) 12/12/22 19:08 MPV 12.3 fL (9.4-12.4) 12/12/22 19:08 Immature Gran % (Auto) 0.4 % 12/12/22 19:08 Neut % (Auto) 91.1 % 12/12/22 19:08 Lymph % (Auto) 4.4 % 12/12/22 19:08 Coal % (Auto) 3.6 % 12/12/22 19:08 Eos % (Auto) 0.2 % 12/12/22 19:08 Baso % (Auto) 0.3 % 12/12/22 19:08 Neut # (Auto) 18.46 K/uL (1.40-6.50) H 12/12/22 19:08 Lymph # (Auto) 0.89 K/uL (1.2-3.4) L 12/12/22 19:08 Coal # (Auto) 0.72 K/uL (0.11-0.59) H 12/12/22 19:08 Eos # (Auto) 0.04 K/uL (0-0.50) 12/12/22 19:08 Baso # (Auto) 0.07 K/uL (0-0.2) 12/12/22 19:08 Immature Gran # (Auto) 0.09 K/uL (0.01-0.20) 12/12/22 19:08 RBC Morphology Unremarkable 12/12/22 19:08 Sodium 136 mmol/L (136-145) 12/12/22 19:08 Potassium 4.1 mmol/L (3.5-5.1) 12/12/22 20:04 Chloride 104 mmol/L (98-107) 12/12/22 19:08 Carbon Dioxide 21 mmol/L (21-32) 12/12/22 19:08 Anion Gap 11 (3-11) 12/12/22 19:08 BUN 21 mg/dl (6-23) 12/12/22 19:08 Creatinine 1.16 mg/dl (0.6-1.2) 12/12/22 19:08 Est Cr Clr Drug Dosing Not Reportable 12/12/22 19:08 Est GFR ( Amer) 61.0 ml/min 12/12/22 19:08 Est GFR (Non-Af Amer) 52.6 ml/min 12/12/22 19:08 BUN/Creatinine Ratio 18.1 (10-20) 12/12/22 19:08 Glucose 227 mg/dl (70-99(Fasting)) H 12/12/22 19:08 Lactate 3.6 mmol/L (0.4-2.0) H* 12/12/22 20:04 Calcium 9.3 mg/dl (8.6-10.3) 12/12/22 19:08 Magnesium 1.6 mg/dl (1.7-2.4) L 12/12/22 20:04 Total Bilirubin 1.4 mg/dl (0.2-1.0) H 12/12/22 19:08 Direct Bilirubin 0.2 mg/dl (0-0.2) 12/12/22 20:04 AST 22 U/L (13-39) 12/12/22 20:04 ALT 22 U/L (7-52) 12/12/22 19:08 Alkaline Phosphatase 67 U/L (34-104) 12/12/22 19:08 Total Protein 7.6 gm/dl (6.0-8.3) 12/12/22 19:08 Albumin 4.9 gm/dl (3.4-5.0) 12/12/22 19:08 Lipase 13 U/L (11-82) 12/12/22 19:08 Urine Color Dark Yellow 12/12/22 19:08 Urine Appearance Cloudy (Clear) A 12/12/22 19:08 Urine pH 5.0 (4.5-7.5) 12/12/22 19:08 Ur Specific [place] 1.028 (1.000-1.030) 12/12/22 19:08 Urine Protein 1+ (Negative) H 12/12/22 19:08 Urine Glucose (UA) Trace (Negative) H 12/12/22 19:08 Urine Ketones Trace (Negative) H 12/12/22 19:08 Urine Blood Negative (Negative) 12/12/22 19:08 Urine Nitrite Negative (Negative) 12/12/22 19:08 Urine Bilirubin Negative (Negative) 12/12/22 19:08 Urine Urobilinogen Negative (Negative) 12/12/22 19:08 Ur Leukocyte Esterase Trace (Negative) H 12/12/22 19:08 Urine WBC (Auto) 5-10 /hpf (0-5) H 12/12/22 19:08 Urine RBC (Auto) 10-30 /hpf (0-4) H 12/12/22 19:08 U Hyaline Cast (Auto) >30 /lpf (0-5) H 12/12/22 19:08 U Epithel Cells (Auto) >30 /lpf (0-5) H 12/12/22 19:08 Urine Bacteria (Auto) Negative (Negative) 12/12/22 19:08 Ur Renal Epithelial Cell Not Reportable 12/12/22 19:08 Granular Casts 5-10 /lpf (0) H 12/12/22 19:08 Stl C. cayetanensis PCR Not Detected (NotDetected) 12/12/22 21:08 Stool Rotavirus A PCR Not Detected (NotDetected) 12/12/22 21:08 Stl Adenov F 40/41 PCR Not Detected (NotDetected) 12/12/22 21:08 Stool Astrovirus (PCR) Not Detected (NotDetected) 12/12/22 21:08 Stool Campylobacter PCR Not Detected (NotDetected) 12/12/22 21:08 Stool Cryptosporidium PCR Not Detected (NotDetected) 12/12/22 21:08 Stl E.coli Shiga Tox PCR Not Detected (NotDetected) 12/12/22 21:08 Stl Enterotoxigenic E PCR Not Detected (NotDetected) 12/12/22 21:08 Stool EPEC (PCR) Not Detected (NotDetected) 12/12/22 21:08 Stool EAEC (PCR) Not Detected (NotDetected) 12/12/22 21:08 Stl E. histolytica PCR Not Detected (NotDetected) 12/12/22 21:08 Stool Giardia Lamblia PCR Not Detected (NotDetected) 12/12/22 21:08 Stool Salmonella PCR Not Detected (NotDetected) 12/12/22 21:08 Stool Sapovirus (PCR) Not Detected (NotDetected) 12/12/22 21:08 Stl P. shigelloides PCR Not Detected (NotDetected) 12/12/22 21:08 Stl Shigella/EIEC PCR Not Detected (NotDetected) 12/12/22 21:08 St Y.enterocolitica PCR Not Detected (NotDetected) 12/12/22 21:08 Stool Vibrio (PCR) Not Detected (NotDetected) 12/12/22 21:08 Stl Vibrio cholerae PCR Not Detected (NotDetected) 12/12/22 21:08 Stl Norovirus GI/GII PCR Not Detected (NotDetected) 12/12/22 21:08 SARS-CoV-2, RNA, NAAT NEGATIVE (NEGATIVE) 12/12/22 19:30 Impressions Abdomen/Pelvis CT 12/12/22 19:[address] WITHOUT CONTRAST CT DOSE: 994.31 mGy.cm HISTORY: dysuria hematuria llq pain TECHNIQUE: Multiaxial CT images of the abdomen and pelvis were performed without contrast. A dose lowering technique was utilized adhering to the principles of ALARA. COMPARISON STUDY: None. FINDINGS: A few small bibasilar linear densities consistent with subsegmental atelectasis. No pneumoperitoneum. No acute fractures identified. Cholecystectomy. Hepatic steatosis. The unenhanced spleen, adrenal glands, and pancreas unremarkable. There is a 2 mm nonobstructing stone within the lower pole of the left kidney. No right renal calculi. No ureteral calculi. No hydronephrosis. No retroperitoneal lymphadenopathy. Normal caliber abdominal aorta. No pelvic lymphadenopathy or pelvic free fluid. Prior hysterectomy. Mild bladder wall thickening. Suboptimal evaluation for bowel pathology due to the lack of intravenous and oral contrast. However, there is no definite bowel wall thickening or obstruction. Multiple fluid-filled loops of large and small bowel are seen throughout the abdomen. This favors a diarrheal il lness/gastroenteritis. Normal appendix. Small gas bubbles along the periphery of the cecum are likely intraluminal. No bowel wall thickening or inflammatory change to suggest pneumatosis at this location. IMPRESSION: 1. Mild bladder wall thickening. This may represent a cystitis. Recommend correlation with urinalysis. 2. Fluid-filled nondilated loops of large and small bowel seen throughout the abdomen. This favors a diarrheal illness/gastroenteritis. 3. No bowel wall thickening or obstruction. 4. Normal appendix. 5. Cholecystectomy. 6. Hepatic steatosis. 7. Left-sided nephrolithiasis. No ureteral stones. No hydronephrosis. ACT 112: Negative or not required by law. Electronically signed by: Zackary Akbar M.D. 12/12/2022 8:29 PM
[2022-12-12] MEDS ORDERED: LORazepam 0.5 MG TAB PO PRN (23:35)
[2022-12-12] MEDS ORDERED: PROMETHAZINE HCL 12.5 MG in SODIUM CHLORIDE 0.9% 50 ML IV PRN (23:35)
[2022-12-12] MEDS ORDERED: traMADol HCL 50 MG TABLET PO PRN (23:35)
[2022-12-13] MEDS ORDERED: ZOLPIDEM TARTRATE 5 MG TAB PO PRN (00:42)
[2022-12-13] MEDS ORDERED: GLUCOSE 40% GEL 15 GM TUBE PO PRN (00:42)
[2022-12-13] MEDS ORDERED: GLUCAGON FOR INJ 1 MG VIAL SQ PRN (00:42)
[2022-12-13] MEDS ORDERED: DEXTROSE 50% 50 ML SYRINGE IV PRN (00:42)
[2022-12-13] MEDS ORDERED: CARBOHYDRATES FOR HYPOGLYCEMIA PO PRN (00:42)
[2022-12-13] MEDS ORDERED: GLUCOSE 10 TAB/TUBE PO PRN (00:42)
[2022-12-13] MEDS: KETOROLAC TROMETHAMINE 15 MG/ML VIAL IV PRN ×3 (00:47→18:34)
[2022-12-13] MEDS: MAGNESIUM SULFATE / D5W 1 GM/100 ML BAG IV SCH ×2 (01:02→03:00)
[2022-12-13] MEDS: INSULIN ASPART PER UNIT CHARGE SC SCH ×5 (01:17→20:42)
[2022-12-13] MEDS: PIPERACILLIN/TAZOBACTAM 4.5 GM in DEXTROSE 5% 100 ML IV SCH ×3 (02:21→17:02)
[2022-12-13 06:53] LABS: BUN Creatinine Ratio 19.3 (10-20); Calcium 8.1 mg/dl (8.6-10.3); Creatinine Clr Calc Pharmacy 74.1 ml/min; Est GFR (African American) 91.4 ml/min; Est GFR (Non-African American) 78.8 ml/min; Magnesium 2.4 mg/dl (1.7-2.4); Potassium 4.1 mmol/L (3.5-5.1)
[2022-12-13 07:27] LABS: Basophils # (auto) 0.08 K/uL (0-0.2); Basophils % (auto) 0.7 %; Eosinophils # (auto) 0.18 K/uL (0-0.50); Eosinophils % (auto) 1.5 %; Hematocrit (blood only) 35.6 % (37.0-47.0); Hemoglobin 11.8 g/dl (12.0-16.0); Immature Granulocytes # (auto) 0.06 K/uL (0.01-0.20); Immature Granulocytes % (auto) 0.5 %; Lymphocytes # (auto) 2.61 K/uL (1.2-3.4); Lymphocytes % (auto) 21.4 %; Mean Corpuscular Hemoglobin 30.6 pg (25.0-34.0); Mean Corpuscular Hgb Conc 33.1 g/dL (32.0-36.0); Mean Corpuscular Volume 92.5 fL (80.0-100.0); Mean Platelet Volume 11.8 fL (9.4-12.4); Monocytes # (auto) 0.67 K/uL (0.11-0.59); Monocytes % (auto) 5.5 %; Neutrophils # (auto) 8.57 K/uL (1.40-6.50); Neutrophils % (auto) 70.4 %; Platelet Count 160 K/uL (130-400); RDW Coefficient of Variation 13.2 % (11.5-14.5); RDW Standard Deviation 44.2 fL (36.4-46.3); Red Blood Count 3.85 M/uL (4.20-5.40); White Blood Count 12.17 K/ul (4.8-10.8)
[2022-12-13] MEDS: ACETAMINOPHEN 325 MG TAB PO PRN ×3 (07:39→21:29)
[2022-12-13] MEDS: lisinopril 2.5 MG TAB PO SCH (07:41)
[2022-12-13] MEDS: ENOXAPARIN INJ 40 MG/0.4 ML SYR SQ SCH (07:44)
[2022-12-13 08:15] LABS: Estimated Average Glucose 157 mg/dl; Hemoglobin A1C 7.1 % (4.5-5.6)
--- NOTE | 2022-12-13 09:05 | XRay Report ---
XR chest 2V PA/lateral CLINICAL HISTORY: ro pneumonia TECHNIQUE: 2 views of the chest were obtained. Comparison: None available at the time of this dictation. FINDINGS: No lines and tubes are seen. The cardiomediastinal silhouette is normal. The lungs are clear. No evid ence of pleural effusion or pneumothorax. IMPRESSION: No acute abnormalities and in particular no radiographic evidence of pneumonia. ACT 112: Negative or not required by law. Electronically signed by: Edward Spicer M.D. 12/13/2022 9:04 AM
--- NOTE | 2022-12-13 11:46 | Hospitalist Progress Note ---
Date of Service December 13, 2022 Assessment & Plan (1) Severe sepsis: Plan: SIRS plus lactic acidosis-vitals have been stable and lactic acid is normalized Procalcitonin noted to be elevated Possible sources : Complicated UTI (cystitis on CT), gastroenteritis-CT of the abdomen pelvis is suggestive of gastroenteritis without any evidence of obstruction Stool culture has been negative and C. difficile is negative too Clinically little better Await blood and urine culture continue current antibiotic with IV Zosyn White count has been improving HTN, stable BP We will continue her home medications DM2 on oral medications, suboptimal control as of outpatient hemoglobin A1c of 9 last November 2021 Basal bolus insulin, ISS BG goal 1 10-1 40, carb count coverage, update hemoglobin A1c Anxiety disorder, at baseline Hyperferritinemia, periodic outpatient phlebotomy under [facility] [place] Hematology supervision Will check ferritin level Cervical dysplasia status post surgery No acute pain DVT prophylaxis. Lovenox subcu Full code Admission and Anticipated Discharge Date Admission Date: December 12, 2022 Subjective 12/13/2022 The patient was seen and examined in medical telemetry unit She has been having stomach upset with nausea and diarrhea for the last 2 weeks- started to have vomiting when she was brought into emergency room Complains to have some lower abdominal pain but denies any dysuria Minimally improved as of today Review of Systems 2 Review of Systems: All systems reviewed and are unremarkable except as noted below Gastrointestinal: Abdominal pain and discomfort with nausea vomiting and diarrhea Physical Exam Physical Exam: Lying in bed with some discomfort due to headache and abdominal pain Constitutional: well developed, well nourished, + ill appearing and + obese Eyes: PERRL, conjunctivae normal, anicteric sclerae ENMT: external ear and nose normal, oropharynx normal Neck: trachea midline, no thyromegaly Respiratory: no respiratory distress Auscultation: lungs clear to auscultation bilaterally Cardiovascular: Rate/Rhythm: regular rate and regular rhythm; not tachycardic Heart Sounds: normal S1 and normal S2; no murmur Extremities: no edema Gastrointestinal (Abdomen): Inspection/Auscultation: normal bowel sounds; abdomen not distended Percussion/Palpation: + abdomen tender (Tender in the hypogastrium) and abdomen soft Musculoskeletal: No acute arthritis involving any joint Neurologic: normal touch/pain/proprioception and moves all extremities; no focal motor deficits Psychiatric: A+Ox3, euthymic affect Lymphatic: no cervical or axillary lymphadenopathy Results & Data Results & Data Vital Signs (Past 12 Hours) Vital Signs Temp Pulse Pulse Pulse Resp BP BP 12/13/22 08:16 37.0 C 86 18 112/66 12/13/22 06:02 79 12/13/22 00:52 81 12/13/22 03:10 36.6 C 82 18 97/61 L 12/13/22 00:26 37.1 C 90 18 127/72 12/13/22 00:26 37.1 C 90 18 127/72 12/12/22 23:42 84 Pulse Ox O2 Del Method 12/13/22 08:16 96 Room Air 12/13/22 06:02 12/13/22 00:52 12/13/22 03:10 97 Room Air 12/13/22 00:26 96 Room Air 12/13/22 00:26 96 Room Air 12/12/22 23:42 Laboratory Results Short CBC 12/12/22 12/13/22 Range/Units 19:08 05:42 WBC 20.27 H 12.17 H (4.8-10.8) K/ul Hgb 14.8 11.8 L D (12.0-16.0) g/dl Hct 44.1 35.6 L (37.0-47.0) % Plt Count 188 160 (130-400) K/uL BMP 12/12/22 12/12/22 12/13/22 19:08 20:04 05:42 Sodium 136 142 Potassium TNP 4.1 4.1 Chloride 104 111 H Carbon Dioxide 21 26 BUN 21 16 Creatinine 1.16 0.83 D Glucose 227 H 134 H Calcium 9.3 8.1 L Liver Function 12/12/22 12/12/22 Range/Units 19:08 20:04 Total Bilirubin 1.4 H (0.2-1.0) mg/dl Direct Bilirubin TNP 0.2 AST TNP 22 ALT 22 (7-52) U/L Alkaline Phosphatase 67 (34-104) U/L Albumin 4.9 (3.4-5.0) gm/dl Urine 12/12/22 Range/Units 19:08 Urine Color Dark Yellow Urine Appearance Cloudy A (Clear) Urine pH 5.0 (4.5-7.5) Ur Specific [place] 1.028 (1.000-1.030) Urine Protein 1+ H (Negative) Urine Glucose (UA) Trace H (Negative) Medications Administered Current Inpatient Medications Acetaminophen (Acetaminophen 325 Mg Tab) 650 mg PO Q4H PRN PRN Reason: Pain or Fever Stop: 01/12/23 00:41 Last Admin: 12/13/22 07:39 Dose: 650 mg Dextrose (Dextrose 50% 50 Ml Syringe) 25 - 50 ml IV UD PRN; Protocol PRN Reason: Hypoglycemia Protocol Stop: 01/12/23 00:41 Enoxaparin Sodium (Enoxaparin Inj 40 Mg/0.4 Ml Syr) 40 mg SQ QAM SAMUEL Stop: 01/12/23 08:59 Last Admin: 12/13/22 07:44 Dose: Not Given Glucagon (Glucagon For Inj 1 Mg Vial) 1 mg SQ UD PRN; Protocol PRN Reason: Hypoglycemia Protocol Stop: 01/12/23 00:41 Glucose (Glucose 10 Tab/Tube) 4 - 8 tab PO UD PRN; Protocol PRN Reason: Hypoglycemia Treatment Stop: 01/12/23 00:41 Glucose (Glucose 40% Gel 15 Gm Tube) 15 - 30 gm PO UD PRN; Protocol PRN Reason: Hypoglycemia Protocol Stop: 01/12/23 00:41 Promethazine HCl 12.5 mg/ (Sodium Chloride) 50.5 mls @ 202 mls/hr IV Q6H PRN PRN Reason: Nausea And Vomiting Stop: 01/11/23 23:34 Piperacillin Sod/Tazobactam (Sod 4.5 gm/ Dextrose) 120 mls @ 200 mls/hr IV Q8H SAMUEL; Protocol Stop: 12/23/22 01:59 Last Infusion: 12/13/22 10:01 Dose: Infused Insulin Aspart (Insulin Aspart Per Unit Charge) 0 units SC ACHS [facility] Stop: 01/12/23 00:41 Last Admin: 12/13/22 07:45 Dose: Not Given Ketorolac Tromethamine (Ketorolac Tromethamine 15 Mg/Ml Vial) 15 mg IV Q6H PRN PRN Reason: Pain Stop: 12/17/22 23:34 Last Admin: 12/13/22 00:47 Dose: 15 mg Lisinopril (Lisinopril 2.5 Mg Tab) 2.5 mg PO DAILY [facility] Stop: 01/12/23 08:59 Last Admin: 12/13/22 07:41 Dose: Not Given Lorazepam (Lorazepam 0.5 Mg Tab) 0.5 mg PO TID PRN PRN Reason: Anxiety Stop: 01/11/23 23:34 Miscellaneous (Carbohydrates For Hypoglycemia ) 15 - 30 gm PO UD PRN PRN Reason: Hypoglycemia Protocol Stop: 01/12/23 00:41 Tramadol HCl (Tramadol Hcl 50 Mg Tablet) 25 - 50 mg PO Q4H PRN PRN Reason: Pain Stop: 01/11/23 23:34 Zolpidem Tartrate (Zolpidem Tartrate 5 Mg Tab) 2.5 mg PO HS PRN PRN Reason: Sleep Stop: 01/12/23 00:41
[2022-12-14] MEDS: PIPERACILLIN/TAZOBACTAM 4.5 GM in DEXTROSE 5% 100 ML IV SCH ×3 (01:54→11:43)
[2022-12-14] MEDS: ACETAMINOPHEN 325 MG TAB PO PRN ×2 (03:37→08:10)
[2022-12-14 06:32] LABS: Basophils # (auto) 0.06 K/uL (0-0.2); Basophils % (auto) 0.9 %; Eosinophils # (auto) 0.31 K/uL (0-0.50); Eosinophils % (auto) 4.4 %; Hematocrit (blood only) 34.8 % (37.0-47.0); Hemoglobin 11.3 g/dl (12.0-16.0); Immature Granulocytes # (auto) 0.02 K/uL (0.01-0.20); Immature Granulocytes % (auto) 0.3 %; Lymphocytes # (auto) 1.74 K/uL (1.2-3.4); Mean Corpuscular Hemoglobin 30.2 pg (25.0-34.0); Mean Corpuscular Hgb Conc 32.5 g/dL (32.0-36.0); Monocytes # (auto) 0.46 K/uL (0.11-0.59); Monocytes % (auto) 6.6 %; Neutrophils # (auto) 4.38 K/uL (1.40-6.50); Neutrophils % (auto) 62.8 %; Platelet Count 116 K/uL (130-400); RDW Coefficient of Variation 12.9 % (11.5-14.5); RDW Standard Deviation 44.1 fL (36.4-46.3); Red Blood Count 3.74 M/uL (4.20-5.40); White Blood Count 6.97 K/ul (4.8-10.8)
[2022-12-14 07:03] LABS: Albumin Level 3.8 gm/dl (3.4-5.0); BUN Creatinine Ratio 12.7 (10-20); Bilirubin,Total 0.7 mg/dl (0.2-1.0); Calcium 8.4 mg/dl (8.6-10.3); Creatinine Clr Calc Pharmacy 77.9 ml/min; Est GFR (Non-African American) 83.7 ml/min; Globulin 1.9 gm/dl (2.5-4.0); Phosphorus 3.1 mg/dl (2.5-4.9); Potassium 4.1 mmol/L (3.5-5.1); Total Protein 5.7 gm/dl (6.0-8.3)
[2022-12-14 07:16] LABS: Ferritin 164.1 ng/ml (8-388)
[2022-12-14] MEDS: INSULIN ASPART PER UNIT CHARGE SC SCH ×2 (07:55→11:43)
[2022-12-14] MEDS: ENOXAPARIN INJ 40 MG/0.4 ML SYR SQ SCH (07:56)
[2022-12-14] MEDS: lisinopril 2.5 MG TAB PO SCH (08:09)
--- NOTE | 2022-12-14 11:03 | Hospitalist Progress Note ---
Date of Service December 14, 2022 Assessment & Plan (1) Severe sepsis: Plan: SIRS plus lactic acidosis-vitals have been stable and lactic acid is normalized Procalcitonin noted to be elevated Possible sources : Complicated UTI (cystitis on CT), gastroenteritis-CT of the abdomen pelvis is suggestive of gastroenteritis without any evidence of obstruction Stool culture has been negative and C. difficile is negative too Clinically little better Await blood and urine culture continue current antibiotic with IV Zosyn White count has been improving Clinically much better and urine culture is not yet back White count is normalized and no fever and or chills and no nausea and or vomiting Diarrhea is controlled evidence of infection She wants to go home and she will be discharged home on oral Levaquin HTN, stable BP We will continue her home medications DM2 on oral medications, suboptimal control as of outpatient hemoglobin A1c of 9 last November 2021 Basal bolus insulin, ISS BG goal 1 10-1 40, carb count coverage, update hemoglobin A1c Anxiety disorder, at baseline Hyperferritinemia, periodic outpatient phlebotomy under [facility] Hematology supervision Will check ferritin level Cervical dysplasia status post surgery No acute pain DVT prophylaxis. Lovenox subcu Full code Admission and Anticipated Discharge Date Admission Date: December 12, 2022 Subjective 12/13/2022 The patient was seen and examined in medical telemetry unit She has been having stomach upset with nausea and diarrhea for the last 2 weeks- started to have vomiting when she was brought into emergency room Complains to have some lower abdominal pain but denies any dysuria Minimally improved as of today 12/14/2022 The patient was seen and examined in medical telemetry unit She has been feeling much better and does not have any headache, nausea and or vomiting or diarrhea She does have hypogastric discomfort without any urinary symptoms No fever and no chills and she definitely wants to go home this afternoon Review of Systems Review of Systems: All systems reviewed and are unremarkable except as noted below Gastrointestinal: Abdominal pain and discomfort with nausea vomiting and diarrhea Physical Exam Physical Exam: Lying in bed with some discomfort due to headache and abdominal pain Constitutional: well developed, well nourished, + ill appearing and + obese Eyes: PERRL, conjunctivae normal, anicteric sclerae ENMT: external ear and nose normal, oropharynx normal Neck: trachea midline, no thyromegaly Respiratory: no respiratory distress Auscultation: lungs clear to auscultation bilaterally Cardiovascular: Rate/Rhythm: regular rate and regular rhythm; not tachycardic Heart Sounds: normal S1 and normal S2; no murmur Extremities: no edema Gastrointestinal (Abdomen): Inspection/Auscultation: normal bowel sounds; abdomen not distended Percussion/Palpation: + abdomen tender (Tender in the hypogastrium) and abdomen soft Neurologic: normal touch/pain/proprioception and moves all extremities; no focal motor deficits Psychiatric: A+Ox3, euthymic affect Lymphatic: no cervical or axillary lymphadenopathy Results & Data Results & Data Vital Signs (Past 12 Hours) Vital Signs Temp Pulse Pulse Pulse Resp BP BP 12/14/22 08:00 72 12/14/22 07:17 36.9 C 72 18 112/67 12/14/22 06:01 74 12/14/22 03:31 36.6 C 72 18 97/58 L 12/13/22 23:14 36.8 C 69 18 133/74 Pulse Ox O2 Del Method 12/14/22 08:00 12/14/22 07:17 96 Room Air 12/14/22 06:01 12/14/22 03:31 96 Room Air 12/13/22 23:14 97 Room Air Laboratory Results Short CBC 12/14/22 Range/Units 05:35 WBC 6.97 (4.8-10.8) K/ul Hgb 11.3 L (12.0-16.0) g/dl Hct 34.8 L (37.0-47.0) % Plt Count 116 L (130-400) K/uL BMP 12/14/22 05:35 Sodium 142 Potassium 4.1 Chloride 110 H Carbon Dioxide 30 BUN 10 Creatinine 0.79 Glucose 104 H Calcium 8.4 L Liver Function 12/14/22 Range/Units 05:35 Total Bilirubin 0.7 D (0.2-1.0) mg/dl AST 34 (13-39) U/L ALT 23 (7-52) U/L Alkaline Phosphatase 46 (34-104) U/L Albumin 3.8 (3.4-5.0) gm/dl Medications Administered Current Inpatient Medications Acetaminophen (Acetaminophen 325 Mg Tab) 650 mg PO Q4H PRN PRN Reason: Pain or Fever Stop: 01/12/23 00:41 Last Admin: 12/14/22 08:10 Dose: 650 mg Dextrose (Dextrose 50% 50 Ml Syringe) 25 - 50 ml IV UD PRN; Protocol PRN Reason: Hypoglycemia Protocol Stop: 01/12/23 00:41 Enoxaparin Sodium (Enoxaparin Inj 40 Mg/0.4 Ml Syr) 40 mg SQ QAM SAMUEL Stop: 01/12/23 08:59 Last Admin: 12/14/22 07:56 Dose: Not Given Glucagon (Glucagon For Inj 1 Mg Vial) 1 mg SQ UD PRN; Protocol PRN Reason: Hypoglycemia Protocol Stop: 01/12/23 00:41 Glucose (Glucose 10 Tab/Tube) 4 - 8 tab PO UD PRN; Protocol PRN Reason: Hypoglycemia Treatment Stop: 01/12/23 00:41 Glucose (Glucose 40% Gel 15 Gm Tube) 15 - 30 gm PO UD PRN; Protocol PRN Reason: Hypoglycemia Protocol Stop: 01/12/23 00:41 Promethazine HCl 12.5 mg/ (Sodium Chloride) 50.5 mls @ 202 mls/hr IV Q6H PRN PRN Reason: Nausea And Vomiting Stop: 01/11/23 23:34 Piperacillin Sod/Tazobactam (Sod 4.5 gm/ Dextrose) 120 mls @ 200 mls/hr IV Q8H SAMUEL; Protocol Stop: 12/23/22 01:59 Last Infusion: 12/14/22 09:47 Dose: Infused Insulin Aspart (Insulin Aspart Per Unit Charge) 0 units SC ACHS [facility] Stop: 01/12/23 00:41 Last Admin: 12/14/22 07:55 Dose: Not Given Ketorolac Tromethamine (Ketorolac Tromethamine 15 Mg/Ml Vial) 15 mg IV Q6H PRN PRN Reason: Pain Stop: 12/17/22 23:34 Last Admin: 12/13/22 18:34 Dose: 15 mg Lisinopril (Lisinopril 2.5 Mg Tab) 2.5 mg PO DAILY SAMUEL Stop: 01/12/23 08:59 Last Admin: 12/14/22 08:09 Dose: Not Given Lorazepam (Lorazepam 0.5 Mg Tab) 0.5 mg PO TID PRN PRN Reason: Anxiety Stop: 01/11/23 23:34 Miscellaneous (Carbohydrates For Hypoglycemia ) 15 - 30 gm PO UD PRN PRN Reason: Hypoglycemia Protocol Stop: 01/12/23 00:41 Tramadol HCl (Tramadol Hcl 50 Mg Tablet) 25 - 50 mg PO Q4H PRN PRN Reason: Pain Stop: 01/11/23 23:34 Last Admin: 12/13/22 23:19 Dose: 50 mg Zolpidem Tartrate (Zolpidem Tartrate 5 Mg Tab) 2.5 mg PO HS PRN PRN Reason: Sleep Stop: 01/12/23 00:41
--- NOTE | 2022-12-14 16:38 | Discharge Summary ---
Date of Service December 14, 2022 Admission HPI Per Admitting Provider History obtained from patient, family, and records. Medical history significant for HTN, DM2 on oral medications, anxiety disorder, hyperferritinemia, cervical dysplasia status post surgery as per records. 2 weeks ago, patient noted dysuria symptoms. Home Azo test positive. PCP prescribed Keflex for possible UTI. Subsequent achy abdominal pain, watery diarrhea and vomiting symptoms after 1 dose of Keflex. Patient consulted [facility] urgent care center. Patient instructed to stop Keflex. Repeat UA done negative for growth. Symptoms initially settled down but started getting worse again yesterday. No chest pain, no SOB, no cough, no fever, no chills. Ceftriaxone and Flagyl administered at the ER. Medical History as above Surgical History : Left shoulder surgery, cervical conization, BTL, cholecystectomy Family History : Heart disease, cirrhosis, RA Personal/Social history : Non-smoker, occasional Et[employer] intake, RN/case management assistant Admission Exam Per Admitting Provider Physical Exam: GENERAL: Comfortable, pleasant, obese, no respiratory distress SKIN: Normal color, warm HEENT: [place] palpebral conjunctivae, no ptosis, dry buccal mucosa NECK : Supple, short neck, no tenderness CHEST : CTA, no tenderness HEART : RRR, no obvious murmurs ABDOMEN: Some distention, central abdominal tenderness EXTREMITIES : Minimal LE swelling, no LE tenderness, no other conspicuous deformities noted NEUROLOGIC : Coherent, no facial asymmetry, no other gross focality Principal Diagnosis Sepsis secondary to possible UTI, gastroenteritis-improved Discharge Exam Lying in bed with some discomfort due to headache and abdominal pain Constitutional well developed, well nourished, + ill appearing and + obese Eyes PERRL, conjunctivae normal, anicteric sclerae ENMT external ear and nose normal, oropharynx normal Neck trachea midline, no thyromegaly Respiratory no respiratory distress Auscultation: lungs clear to auscultation bilaterally Cardiovascular Rate/Rhythm: regular rate and regular rhythm; not tachycardic Heart Sounds: normal S1 and normal S2; no murmur Extremities: no edema Gastrointestinal (Abdomen) Inspection/Auscultation: normal bowel sounds; abdomen not distended Percussion/Palpation: + abdomen tender (Tender in the hypogastrium) and abdomen soft Neurologic normal touch/pain/proprioception and moves all extremities; no focal motor deficits Psychiatric A+Ox3, euthymic affect Lymphatic no cervical or axillary lymphadenopathy Discharge Data Allergies Allergy/AdvReac Type Severity Reaction Status Date / Time cephalexin [From Keflex] AdvReac vomiting & Verified 12/13/22 00:01 diarrhea Consultations 12/12/22 22:44 ED Decision to Admit Stat Ordered Studies 12/12/22 19:02 CT abd pelvis wo con Stat Hospital Course (1) Severe sepsis: SIRS plus lactic acidosis-vitals have been stable and lactic acid is normalized Procalcitonin noted to be elevated Possible sources : Complicated UTI (cystitis on CT), gastroenteritis-CT of the abdomen pelvis is suggestive of gastroenteritis without any evidence of obstruction Stool culture has been negative and C. difficile is negative too Clinically little better Await blood and urine culture continue current antibiotic with IV Zosyn White count has been improving Clinically much better and urine culture is not yet back White count is normalized and no fever and or chills and no nausea and or vomiting Diarrhea is controlled evidence of infection She wants to go home and she will be discharged home on oral Levaquin HTN, stable BP We will continue her home medications DM2 on oral medications, suboptimal control as of outpatient hemoglobin A1c of 9 last November 2021 Basal bolus insulin, ISS BG goal 1 10-1 40, carb count coverage, update hemoglobin A1c Anxiety disorder, at baseline Hyperferritinemia, periodic outpatient phlebotomy under [facility] [place] Hematology supervision Will check ferritin level Cervical dysplasia status post surgery No acute pain DVT prophylaxis. Lovenox subcu Full code Total Time Total Time Spent Total Time Spent (In Minutes): 35 minutes Discharge Plan Discharge Items Patient Disposition: Home - Self-Care Reason For Visit: SEPSIS Discharge Diagnosis: Sepsis secondary to possible UTI, gastroenteritis-improved Condition on Discharge: Good Activity: Resume your previous activity Non-emergency contact: Primary Care Provider Call non-emergency contact if: you have any medication questions and your symptoms worsen Follow-up/Referrals: Jeyson Quesada DO [Primary Care Provider] - (Your doctor's office will give you a call on Thursday with an appointment within 7 days) Diet: Carb Consistent or DM2 Addtl Attending Provider Instructions: Please take precautions to avoid falls Try to drink more fluid Finish the course of antibiotic Please give appointment with your healthcare providers Do not take nausea medication-ondansetron, Zofran while you are on Levaquin Try to take lala-rwn-synwpgs probiotic with the antibiotic Pending Studies at Discharge: Yes Studies:: Urine culture report Stand-Alone Forms: My [facility], Work/School Release, Smoking Cessation Medications and DC Order Prescriptions: New levofloxacin 500 mg tablet 500 mg PO DAILY 5 Days Qty: 5 0RF Continued tizanidine 4 mg tablet 4 mg PO TID PRN (Reason: .spasms) ondansetron HCl 4 mg tablet 8 mg PO Q8 PRN (Reason: Nausea) metformin 1,000 mg tablet 1,000 mg PO BID zolpidem 5 mg tablet 2.5 mg PO HS PRN (Reason: Sleep) lisinopril 2.5 mg tablet 2.5 mg PO DAILY acetaminophen [Tylenol Extra Strength] 500 mg Tablet 1,000 mg PO Q6H PRN (Reason: Pain) Discharge Orders: Discharge Order (Routine); Ordered 12/14/22 Ordered By: Ernie Harmon/Other Patient Handouts: Managing Type 2 Diabetes, Self-Care for Vomiting and Diarrhea, Vertigo Staying Safe Admission Data Admit Date/Time: 12/12/22 23:34 Attending Provider: Ernie Cardoso Admit Provider: Ervin Gupta Primary Care Provider: Jeyson Quesada Other Providers: Ervin Gupta Other Interventions: Discharge Summary Assessment (RN) Last Done: 12/14/22 11:16
== END 2022-12-14 12:48 | disposition home or self-care (01) | DRG 872 ==
LOC: ED 18:33 → 2W 18:33 → OBSVTOIN 23:34 → 2W 12-13 00:35